=== PATIENT | male | born 1975 | race American Indian/Alaskan Native ===

== ENCOUNTER 2021-12-28 13:29 | Emergency (ER) | payer SELFPAY ==
[2021-12-28 14:03] VITALS: BP 155/87
--- NOTE | 2021-12-29 10:55 | Electrocardiograph Report ---
[facility] Test Date: 2021-12-28 Test Time: 13:34:25 Pat Name: EMIR GILL Department: Room: Gender: [employer] Associate: AKILAH : 1975 Requested By: CARY HOGUE Order Number: [id number] Reading MD: Cristopher Morin Measurements Intervals [place] Rate: 68 P: 54 SC: 148 QRS: 74 QRSD: 102 T: -39 QT: 397 QTc: 424 Interpretive Statements Sinus rhythm No previous ECG available for comparison Electronically Signed On 12-29-2021 10:55:24 EDT by Cristopher Morin
== END 2021-12-28 18:20 | disposition left against medical advice (07) ==
LOC: ED 13:29
DX: R07.9 Chest pain, unspecified (principal); Z53.21 Procedure and treatment not carried out due to patient leaving prior to being seen by health care provider
CPT/HCPCS: 93005